=== PATIENT | female | born 1970 | race Caucasian/White ===

== ENCOUNTER 2018-07-25 19:44 | Emergency (ER) | END 2018-07-25 21:23 | disposition home or self-care (01) ==

== ENCOUNTER 2019-05-09 15:22 | Inpatient (IN) | payer OTHER ==
[~2019-05-09] VITALS: Ht 160 cm; Wt 126.2 kg
[~2019-05-09 15:22] MED LIST: AMOX1TAB10 PO; FER325 PO; IBUP800T48 PO; MEGE40TA PO; NO MEDS
[2019-05-09] MEDS ORDERED: SOD CHLORIDE 0.9% 0 ML IV ONE (16:44)
[2019-05-09] MEDS ORDERED: NACL 0.9% 3 ML SYG IV SCH (17:30)
[2019-05-09] MEDS ORDERED: ONDANSETRON 4 MG INJ IV PRN ×2 (17:30→18:00)
[2019-05-09] MEDS ORDERED: HYDROCODONE/APAP (5/325) TAB PO PRN (17:30)
[2019-05-09] MEDS ORDERED: MAGNESIUM HYDROXIDE 30ML CUP PO PRN (17:30)
[2019-05-09] MEDS ORDERED: DOCUSATE SODIUM 100 MG CAP PO PRN (17:30)
[2019-05-09] MEDS ORDERED: ACETAMINOPHEN 325 MG TAB PO PRN (18:00)
[2019-05-09 21:18] VITALS: BP 138/67; PULSE 83; RESP 18
[2019-05-09 21:29] VITALS: Ht 160 cm; Wt 126.2 kg
[2019-05-10] VITALS: BP 148/84; PULSE 87; RESP 20
[2019-05-10] MEDS: DEXTROSE 5%-0.45% NACL 1,000 ML IV SCH ×4 (03:20→13:20)
[2019-05-10 04:00] VITALS: BP 133/67; PULSE 86; RESP 20
[2019-05-10 07:29] VITALS: BP 136/74; PULSE 82; RESP 19
[2019-05-10 11:42] VITALS: BP 135/71; PULSE 71; RESP 18
[2019-05-10 16:41] VITALS: BP 151/76; PULSE 83; RESP 18
[2019-05-10 19:52] VITALS: BP 129/72; PULSE 84; RESP 17
[2019-05-10] MEDS: SOD FERRIC GLUC COMPLX 125 MG in SOD CHLORIDE 0.9% 100 ML IVPB SCH (23:18)
[2019-05-11 00:13] VITALS: BP 129/68; PULSE 82; RESP 18
[2019-05-11] MEDS: ACETAMINOPHEN 325 MG TAB PO PRN (02:40)
[2019-05-11 03:49] VITALS: BP 138/65; PULSE 81; RESP 18
[2019-05-11] MEDS: DEXTROSE 5%-0.45% NACL 1,000 ML IV SCH ×2 (06:03→08:31)
[2019-05-11] MEDS ORDERED: FUROSEMIDE 20 MG TAB PO ONE (06:30)
[2019-05-11 08:00] VITALS: BP 138/85; PULSE 75; RESP 18
[2019-05-11 11:45] VITALS: BP 158/86; PULSE 75; RESP 20
[2019-05-11] MEDS ORDERED: LORAZEPAM 2 MG INJ IV ONE (12:00)
[2019-05-11] MEDS: SOD FERRIC GLUC COMPLX 125 MG in SOD CHLORIDE 0.9% 100 ML IVPB SCH (14:01)
[2019-05-11 16:00] VITALS: BP 162/90; PULSE 75; RESP 20
[2019-05-11] MEDS ORDERED: MEDROXYPROGESTERONE 10 MG TAB PO SCH (19:00)
[2019-05-11] MEDS ORDERED: MEGESTROL 40 MG TAB PO SCH (19:00)
[2019-05-11 19:28] VITALS: BP 139/79; PULSE 79; RESP 18
[2019-05-11] MEDS: MEGESTROL 40 MG TAB PO SCH (19:39)
[2019-05-12 04:21] VITALS: BP 131/83; PULSE 79; RESP 18
[2019-05-12 07:35] VITALS: BP 128/74; PULSE 82; RESP 19
[2019-05-12] MEDS: ACETAMINOPHEN 325 MG TAB PO PRN (07:59)
[2019-05-12] MEDS: MEGESTROL 40 MG TAB PO SCH (08:52)
[2019-05-12] MEDS ORDERED: SOD FERRIC GLUC COMPLX 125 MG in SOD CHLORIDE 0.9% 100 ML IVPB ONE (09:00)
== END 2019-05-12 13:17 | disposition home or self-care (01) | DRG 812 ==
LOC: E/R 15:22 → 6WM 17:50 → MS1 05-12 04:11
PROVIDERS: ADMIT Internal Medicine; ATTEND Internal Medicine
PROC: 30233N1 Transfusion of Nonautologous Red Blood Cells into Peripheral Vein, Percutaneous Approach (ICD-10-PCS; principal; 2019-05-09)
DX: D62 Acute posthemorrhagic anemia (principal); N83.201 Unspecified ovarian cyst, right side; D25.9 Leiomyoma of uterus, unspecified; N92.4 Excessive bleeding in the premenopausal period; I10 Essential (primary) hypertension
CPT/HCPCS: 36430; 72198; 74183; 76856; 80048; 83540; 83735; 84439; 84443; 84703; 85025; 86301; 86304; 86644; 86850; 86900; 86901; 86920; J2060; J2916; J7040; J7042; P9016